=== PATIENT | female | born 1980 | race African-American/Black ===

== ENCOUNTER 2022-08-21 10:49 | Emergency (ER) | payer MEDICARE, MEDICAID ==
[~2022-08-21] VITALS: Ht 182.9 cm; Wt 130.0 kg
[~2022-08-21 10:49] MED LIST: ASEN10TA10 SL; NITR-87 MT
[2022-08-21] MEDS ORDERED: LORAZEPAM 1MG TABLET PO ONE (11:30)
[2022-08-21] MEDS ORDERED: PREDNISONE 20MG TABLET PO ONE (11:30)
[2022-08-21] MEDS ORDERED: P20 MT ×2 (13:34→14:29)
[2022-08-21] MEDS ORDERED: NIRM1TAB PO ×2 (13:34→14:29)
[2022-08-21] MEDS ORDERED: ALBU6.7H3 INH (13:34)
[2022-08-21] MEDS ORDERED: LORA-250 MT ×2 (13:34→14:29)
[2022-08-21] MEDS ORDERED: IBUP-2029 MT ×2 (13:34→14:29)
[2022-08-21] MEDS ORDERED: ONDA4TAB11 PO ×2 (13:34→14:29)
[2022-08-21] MEDS ORDERED: ALBU6.7H15 INH (14:29)
[2022-08-21 14:43] VITALS: BP 137/86
== END 2022-08-21 14:44 | disposition home or self-care (01) ==
LOC: ER 11:01
DX: U07.1 COVID-19 (principal); J45.909 Unspecified asthma, uncomplicated; F10.20 Alcohol dependence, uncomplicated; Z90.49 Acquired absence of other specified parts of digestive tract; Z79.899 Other long term (current) drug therapy
CPT/HCPCS: 71045; 99283; J7512

== ENCOUNTER 2023-07-16 22:55 | Emergency (ER) | payer MEDICARE, MEDICAID ==
[~2023-07-16] VITALS: Ht 170.2 cm; Wt 70.0 kg
[~2023-07-16 22:55] MED LIST changes: +ALBU6.7H15 INH; -ASEN10TA10 SL; +IBUP-2029 MT; +LORA-250 MT; +NIRM1TAB PO; -NITR-87 MT; +ONDA4TAB11 PO; +P20 MT
[2023-07-16 23:00] VITALS: O2SAT 100
[2023-07-17 01:11] LABS: BASOPHILS % 0.5 % (0.0-2.0); EOSINOPHILS % 1.5 % (0.0-5.0); HEMATOCRIT. 34.9 % (36.0-48.0); LYMPHOCYTES % 9.7 % (20.0-50.0); MEAN CORPUSCULAR HEMOGLOBIN 26.5 pg (28.0-32.0); MEAN CORPUSCULAR HGB CONC 31.6 g/dL (31.0-37.0); MEAN CORPUSCULAR VOLUME 83.9 fL (81.0-99.0); MEAN PLATELET VOLUME 8.2 fl (7.4-10.4); MONOCYTES % 10.5 % (2.0-8.0); NEUTROPHILS % 77.8 % (40.0-76.0); PLATELET 178 x1000/uL (130-400); RED BLOOD CELL COUNT 4.15 mill/uL (4.2-5.4); RED CELL DISTRIBUTION WIDTH 21.9 % (11.6-14.6); WHITE BLOOD COUNT 7.2 x1000/uL (4.5-11.0)
[2023-07-17 01:26] LABS: CHLORIDE 106 mEq/L (98-107); INDEX HEMOLYSI 1 (1-3); INDEX ICTERIC 1 (1-4); INDEX LIPEMIC 1 (1-3); POTASSIUM 3.4 mEq/L (3.5-5.1); SODIUM 137 mEq/L (136-145)
[2023-07-17 01:27] LABS: HCG SCREEN NEGATIVE
[2023-07-17 01:47] LABS: ACETAMINOPHEN <2 ug/mL ug/mL (10-30); ALANINE AMINOTRANSFERASE 38 IU/L (13-61); ALBUMIN 3.5 g/dL (3.4-5.0); ASPARTATE AMINOTRANSFERASE 51 IU/L (15-37); BILIRUBIN TOTAL 0.9 mg/dL (0.1-1.0); CALCIUM 8.9 mg/dL (8.5-10.1); CARBON DIOXIDE 25 mEq/L (21-32); CREATININE 0.7 mg/dL (0.6-1.3); ETHANOL BLOOD < 10 mg/dL (<10); GLUCOSE 103 mg/dL (70-105); UREA NITROGEN BLOOD 7 mg/dL (7-21)
[2023-07-17] MEDS ORDERED: ZIPRASIDONE MESYLATE 20MG/VIAL IM ONE (02:00)
[2023-07-17 12:34] VITALS: BP 106/67; PULSE 90; RESP 16; TEMP 98.3
== END 2023-07-17 14:12 | disposition home or self-care (01) ==
LOC: ER 22:55
DX: R45.851 Suicidal ideations (principal); J45.909 Unspecified asthma, uncomplicated; F10.229 Alcohol dependence with intoxication, unspecified; Z90.49 Acquired absence of other specified parts of digestive tract; Y90.0 Blood alcohol level of less than 20 mg/100 ml
CPT/HCPCS: 36415; 99285; 80053; 80307; 80329; 80320; 84703; 85025; 96372; J3486; G0480